=== PATIENT | female | born 1970 | race Caucasian/White ===

== ENCOUNTER → 2019-07-12 | Outpatient (CLI) | payer OTHER, SELFPAY ==
--- NOTE | 2019-07-12 11:57 | RAD_ITS ---
STUDY: X-RAY - LEFT FOOT CLINICAL: Female, 49 years old. Fall, foot pain TECHNIQUE: 3 view(s) of the foot. COMPARISON: None. FINDINGS: Normal talus, calcaneus, and tarsal bones. 1 cm type II accessory navicular bone. Moderate plantar and posterior calcaneal enthesophytes. Normal visualized subtalar, talonavicular, calcaneocuboid, tarsal and tarsometatarsal articulations. Normal metatarsi. Normal metatarsophalangeal joint of the great toe. Normal tibial and fibular sesamoid bones. Normal interphalangeal joint of the great toe. Normal phalanges of the great toe. Normal second through fifth metatarsophalangeal joints. Normal interphalangeal joints and phalanges of the lesser toes. The soft tissue structures are unremarkable. RAD/Foot min 3 Views IMPRESSION: Normal x-ray examination of the foot. Electronically Signed: Igor Bernal MD at 12:52 EDT Tel , Service support ,
--- NOTE | 2019-07-12 11:57 | RAD_ITS ---
STUDY: X-RAY - LEFT ANKLE REASON FOR EXAM: Female, 49 years old. Injury 3 days ago TECHNIQUE: 3 view(s) of the ankle. COMPARISON: None. FINDINGS: There is an accessory ossicle noted lateral to the cuboid, with a lucency and this may represent developmental change unless if this patient is painful in this region, in which case one should consider possibility of fracture of the accessory ossicle. Moderate Achilles enthesophyte and plantar heel spur. Unremarkable talar dome and also tibial plafond. Unremarkable distal fibula. Intact base of the fifth metatarsal. RAD/Ankle min 3 Views IMPRESSION: Accessory ossicle with lucency lateral to the cuboid, which may be due to developmental change unless if the patient is painful in this region, in which case one should consider possibility of fracture of the accessory ossicle. Moderate Achilles enthesophyte and plantar heel spur. Electronically Signed: Wilber Zazueta MD at 12:36 EDT Tel [phone], Service support ,
== END | disposition home or self-care (01) ==
LOC: HPRAD 11:56
PROVIDERS: Family Provider Nurse Practitioner Primary Care; PCP Nurse Practitioner Primary Care; Referring Provider Physician Assistant Surgical; Visit Provider Physician Assistant Surgical
DX: S93.402A Sprain of unspecified ligament of left ankle, initial encounter (principal)
CPT/HCPCS: 73610; 73630